=== PATIENT | female | born 1955 | race Caucasian/White ===

== ENCOUNTER 2016-06-05 17:56 | Emergency (ER) | payer OTHER ==
[~2016-06-05] VITALS: Ht 170.2 cm; Wt 74.0 kg
[~2016-06-05 17:56] MED LIST: AMITRIPTYLINE100 MG PO; ASCORBIC ACID500 M3 PO; ASPIRIN81 M1; ASPIRIN81 M2 PO; AVINZA30 MG PO; BENADRYL25 MG PO; BUPROPION XL150 MG PO; CALTRATE 600600 MG; CHANTIX1 MG PO; COUMADIN1 MG PO; COUMADIN5 MG PO; Calcium Carbonate,Ca PO; DOCUSATE SODIU100 MG PO; ELAVIL25 MG PO; Ecotrin PO; Elavil PO; FOLIC ACID1 MG PO; GABAPENTIN600 MG PO; HYDROCODON-ACE1 EAC5 PO; HYDROCODON-ACE1 EAC9 PO; HYDROXYCHLOROQ200 MG; LANSOPRAZOLE30 MG; LANSOPRAZOLE30 MG PO; LEVOTHYROXINE75 MCG; LEVOTHYROXINE75 MCG PO; Levothroid,Synthroid PO; MORPHINE SULFAT15 M1 PO; MORPHINE SULFAT30 M5 PO; MS CONTIN,ORAMO15 M1 PO; Magnesium PO; NEURONTIN600 MG PO; Neurontin PO; OMNICEF300 MG PO; OXYCODONE HCL5 MG PO; PLAVIX75 MG; POLYETHYLENE GL17 GM PO; PREDNISONE5 MG PO; PROTONIX40 MG PO; Percocet 5/325,Endoc PO; Plaquenil PO; Protonix PO; SENNA-TIME S T1 EACH PO; ST. JOSEPH ASPI81 MG PO; SYNTHROID75 MCG PO; Senokot S,Pericolace PO; Slow Fe PO; THERAGRAN1 TABLET PO; TIZANIDINE HCL4 MG PO; TRAZODONE HCL50 MG PO; TYLENOL REGULA325 MG PO; VESICARE5 MG PO; VITAMIN D250000 UNIT; WARFARIN SODIUM5 MG PO; WELLBUTRIN XL150 MG PO; WELLBUTRIN XL300 MG PO; ZANAFLEX4 M1 PO; ZOFRAN ODT4 MG PO
[2016-06-05 17:58] VITALS: BP 140/100
[2016-06-05 19:01] LABS: HEMATOCRIT 42.7 % (36.0-46.0); MCH 30.4 PG (29.0-34.0); MCHC 33.3 G/DL (30.0-36.0); MCV 91.4 FL (83-99); MEAN PLAT.VOLUME 10.5 uM^3 (9.5-12.4); PLATELET COUNT 127 K/uL (156-360); RBC DIS.WIDTH-SD 45.9 % (39-53); RED BLOOD COUNT 4.67 M/uL (3.80-5.20); WHITE BLOOD COUNT 5.2 K/uL (4.1-10.2)
[2016-06-05 19:11] LABS: CHLORIDE 109 mEq/L (99-109); SODIUM 141 mEq/L (136-147)
[2016-06-05 19:13] LABS: GLUCOSE 98 mg/dL (70-99)
[2016-06-05 19:14] LABS: ANION GAP 9 MEQ/L (2-14)
[2016-06-05 19:16] LABS: GFR ESTIMATE (CALCULATED) > 59 mL/min/
[2016-06-05 19:17] LABS: UREA NITROGEN (BUN) 9 mg/dL (9-23)
== END 2016-06-05 18:58 | disposition left against medical advice (07) ==
LOC: EME 17:56
DX: R51 Headache (principal); R61 Generalized hyperhidrosis; R68.83 Chills (without fever); Z53.21 Procedure and treatment not carried out due to patient leaving prior to being seen by health care provider
CPT/HCPCS: 80048; 81003; 85027; 87502

== ENCOUNTER 2016-10-03 15:16 | Emergency (ER) | payer OTHER ==
[~2016-10-03] VITALS: Ht 167.6 cm; Wt 74.5 kg
[2016-10-03 15:52] LABS: HEMATOCRIT 33.4 % (36.0-46.0); MCHC 33.2 G/DL (30.0-36.0); MCV 93.3 FL (83-99); MEAN PLAT.VOLUME 10.3 uM^3 (9.5-12.4); PLATELET COUNT 118 K/uL (156-360); RBC DIS.WIDTH-CV 13.2 % (11.8-14.6); RBC DIS.WIDTH-SD 45.3 % (39-53); RED BLOOD COUNT 3.58 M/uL (3.80-5.20); WHITE BLOOD COUNT 5.5 K/uL (4.1-10.2)
[2016-10-03 16:01] LABS: PROTHROMBIN TIME 10.2 (9.2-11.2); PTT 25.2 (25-32)
[2016-10-03 16:05] LABS: CHLORIDE 107 mEq/L (99-109); POTASSIUM 3.9 mEq/L (3.7-5.4); SODIUM 137 mEq/L (136-147)
[2016-10-03 16:07] LABS: GLUCOSE 111 mg/dL (70-99)
[2016-10-03 16:09] LABS: ANION GAP 6 MEQ/L (2-14)
[2016-10-03 16:11] LABS: GFR ESTIMATE (CALCULATED) > 59 mL/min/
[2016-10-03 16:12] LABS: UREA NITROGEN (BUN) 9 mg/dL (9-23)
[2016-10-03 16:16] LABS: TROP-I INTERPRETATION NEGATIVE; TROPONIN-I < 0.01 ng/mL (0.0-0.30)
[2016-10-03 19:04] VITALS: BP 122/88
[2016-10-03 19:17] LABS: ADD MIUA? YES; BILIRUBIN NEGATIVE; BLOOD NEGATIVE; COLOR YELLOW ((YELLOW)); GLUCOSE (STRIP) NEGATIVE; KETONES NEGATIVE; LEUKOCYTES MODERATE; NITRITE NEGATIVE; PROTEIN (STRIP) NEGATIVE; SPECIFIC GRAVITY 1.008 (1.000-1.030); UROBILINOGEN 0.2 MG/DL (0.2-1.0)
[2016-10-03 19:27] LABS: BACTERIA RARE /HPF; EPITHELIAL CELLS 1+ /HPF; MUCUS TRACE /LPF; RED BLOOD CELLS 0-5 /HPF (0-5)
== END 2016-10-03 19:23 | disposition home or self-care (01) ==
LOC: EME 15:16 → EXP 15:33
PROVIDERS: Nurse Practitioner Family
DX: S42.021A Displaced fracture of shaft of right clavicle, initial encounter for closed fracture (principal); R55 Syncope and collapse; W18.30XA Fall on same level, unspecified, initial encounter; Z86.73 Personal history of transient ischemic attack (TIA), and cerebral infarction without residual deficits; K21.9 Gastro-esophageal reflux disease without esophagitis; F17.200 Nicotine dependence, unspecified, uncomplicated
CPT/HCPCS: 70450; 71250; 73000; 80048; 81003; 84484; 85027; 85610; 85730; 87086; 93005; 99281; 99285; J3010

== ENCOUNTER 2017-01-23 17:17 | Emergency (ER) | payer OTHER ==
[~2017-01-23] VITALS: Ht 157.5 cm; Wt 69.7 kg
[2017-01-23 19:41] LABS: EOSINOPHIL (%) 1.4 % (0-5); EOSINOPHIL COUNT 0.1 K/uL (0-0.3); HEMATOCRIT 38.4 % (36.0-46.0); IMMATURE GRANULOCYTE (%) 0.2 % (0.0-0.7); MCH 30.4 PG (29.0-34.0); MCHC 33.6 G/DL (30.0-36.0); MCV 90.6 FL (83-99); MEAN PLAT.VOLUME 10.1 uM^3 (9.5-12.4); MONOCYTE (%) 6.9 % (3-12); MONOCYTE COUNT 0.5 K/uL (0-0.8); PLATELET COUNT 125 K/uL (156-360); RBC DIS.WIDTH-CV 13.9 % (11.8-14.6); RED BLOOD COUNT 4.24 M/uL (3.80-5.20); WHITE BLOOD COUNT 6.5 K/uL (4.1-10.2)
[2017-01-23 19:57] LABS: CHLORIDE 111 mEq/L (99-109); POTASSIUM 3.5 mEq/L (3.7-5.4); SODIUM 141 mEq/L (136-147)
[2017-01-23 19:58] LABS: GLUCOSE 90 mg/dL (70-99)
[2017-01-23 20:00] LABS: ANION GAP 8 MEQ/L (2-14)
[2017-01-23 20:02] LABS: GFR ESTIMATE (CALCULATED) > 59 mL/min/
[2017-01-23 20:03] LABS: UREA NITROGEN (BUN) 6 mg/dL (9-23)
[2017-01-23 20:05] LABS: CREATINE KINASE 37 IU/L (1-294)
[2017-01-23 20:52] LABS: PROLACTIN 7.5 NG/ML
[2017-01-23 22:15] VITALS: BP 151/80
== END 2017-01-23 22:16 | disposition home or self-care (01) ==
LOC: EME 17:17
PROVIDERS: Emergency Medicine
DX: G40.909 Epilepsy, unspecified, not intractable, without status epilepticus (principal); K21.9 Gastro-esophageal reflux disease without esophagitis; M06.9 Rheumatoid arthritis, unspecified; E03.9 Hypothyroidism, unspecified; F41.9 Anxiety disorder, unspecified; F32.9 Major depressive disorder, single episode, unspecified; Z86.73 Personal history of transient ischemic attack (TIA), and cerebral infarction without residual deficits; Z88.0 Allergy status to penicillin; F17.200 Nicotine dependence, unspecified, uncomplicated; Z79.82 Long term (current) use of aspirin
CPT/HCPCS: 70450; 80048; 82550; 84146; 85025; 99281; 99284

== ENCOUNTER → 2017-03-26 | Outpatient (CLI) | payer OTHER ==
[~2017-03-26] MED LIST changes: +INDERAL80 MG PO; +LEVOTHYROXINE50 MCG PO; +LINZESS145 MCG PO; +LORTAB 10-3251 EACH PO; +MORPHABOND ER15 MG PO; +MYSOLINE50 MG PO; +PRIMIDONE50 MG PO; +RANITIDINE HCL150 MG PO; +SERTRALINE HCL100 MG PO; +TRAZODONE HCL150 MG PO; +ZESTRIL20 MG PO; +ZOFRAN8 MG PO; +ZOLOFT100 MG PO
== END | disposition home or self-care (01) ==
LOC: OPR 09:00 → EDSTATUS 09:00 → OPR 09:03
DX: K73.8 Other chronic hepatitis, not elsewhere classified (principal); K76.0 Fatty (change of) liver, not elsewhere classified; K21.9 Gastro-esophageal reflux disease without esophagitis; M06.9 Rheumatoid arthritis, unspecified; Z79.82 Long term (current) use of aspirin; F17.210 Nicotine dependence, cigarettes, uncomplicated
CPT/HCPCS: 77012; 88307; 88313; J3010

== ENCOUNTER 2017-04-18 18:14 | Emergency (ER) | payer OTHER ==
[~2017-04-18] VITALS: Ht 162.6 cm; Wt 74.8 kg
[2017-04-18 18:56] LABS: EOSINOPHIL (%) 1.6 % (0-5); EOSINOPHIL COUNT 0.1 K/uL (0-0.3); HEMATOCRIT 37.7 % (36.0-46.0); IMMATURE GRANULOCYTE (%) 0.4 % (0.0-0.7); INSTRUMENT ABS NEUTROPHIL CT 3.6 K/uL; MCH 31.3 PG (29.0-34.0); MCHC 33.4 G/DL (30.0-36.0); MCV 93.8 FL (83-99); MEAN PLAT.VOLUME 10.6 uM^3 (9.5-12.4); MONOCYTE (%) 9.3 % (3-12); MONOCYTE COUNT 0.5 K/uL (0-0.8); NEUTROPHIL (%) 69.3 % (45-76); NEUTROPHIL COUNT 3.6 K/uL (1.8-6.4); PLATELET COUNT 125 K/uL (156-360); RBC DIS.WIDTH-CV 14.3 % (11.8-14.6); RBC DIS.WIDTH-SD 49.8 % (39-53); RED BLOOD COUNT 4.02 M/uL (3.80-5.20); WHITE BLOOD COUNT 5.2 K/uL (4.1-10.2)
[2017-04-18 19:04] LABS: CHLORIDE 102 mEq/L (99-109); POTASSIUM 4.7 mEq/L (3.7-5.4); SODIUM 132 mEq/L (136-147)
[2017-04-18 19:07] LABS: GLUCOSE 95 mg/dL (70-99)
[2017-04-18 19:08] LABS: ANION GAP 7 MEQ/L (2-14)
[2017-04-18 19:09] LABS: TOTAL BILIRUBIN 0.7 mg/dL (0.0-1.0)
[2017-04-18 19:10] LABS: ALKALINE PHOSPHATASE 161 IU/L (3-129); GFR ESTIMATE (CALCULATED) 49 mL/min/
[2017-04-18 19:11] LABS: UREA NITROGEN (BUN) 16 mg/dL (9-23)
[2017-04-18 19:17] LABS: TROP-I INTERPRETATION NEGATIVE; TROPONIN-I < 0.01 ng/mL (0.0-0.30)
[2017-04-18 20:38] LABS: ADD MIUA? YES; BILIRUBIN NEGATIVE; BLOOD NEGATIVE; COLOR YELLOW ((YELLOW)); GLUCOSE (STRIP) NEGATIVE; KETONES NEGATIVE; LEUKOCYTES NEGATIVE; NITRITE NEGATIVE; PROTEIN (STRIP) NEGATIVE; SPECIFIC GRAVITY 1.013 (1.000-1.030)
[2017-04-18 20:41] LABS: BACTERIA RARE /HPF; EPITHELIAL CELLS RARE /HPF; HYALINE CASTS 15-20 /LPF; MUCUS TRACE /LPF; RED BLOOD CELLS 0-5 /HPF (0-5); UNCLASSIFIED CRYSTALS 3+ /HPF; WHITE BLOOD CELLS 0-5 /HPF (0-5)
[2017-04-18 21:30] VITALS: BP 100/59
== END 2017-04-18 21:41 | disposition home or self-care (01) ==
LOC: EME 18:14
PROVIDERS: Physician Assistant Medical
DX: M25.561 Pain in right knee (principal); W18.30XA Fall on same level, unspecified, initial encounter; M06.9 Rheumatoid arthritis, unspecified; E03.9 Hypothyroidism, unspecified; Z91.81 History of falling; K21.9 Gastro-esophageal reflux disease without esophagitis; F32.9 Major depressive disorder, single episode, unspecified; F41.9 Anxiety disorder, unspecified; F17.200 Nicotine dependence, unspecified, uncomplicated; Z86.73 Personal history of transient ischemic attack (TIA), and cerebral infarction without residual deficits; Z96.653 Presence of artificial knee joint, bilateral; Z79.82 Long term (current) use of aspirin; Z88.0 Allergy status to penicillin; Z88.5 Allergy status to narcotic agent
CPT/HCPCS: 70450; 71010; 73564; 80053; 81003; 83735; 84484; 85025; 99281; 99285; J7030

== ENCOUNTER 2017-07-14 18:07 | Inpatient (IN) | payer OTHER ==
[~2017-07-14] VITALS: Ht 172.7 cm; Wt 68.7 kg
[2017-07-14 18:47] LABS: BASOPHIL (%) 0.2 % (0-1); EOSINOPHIL (%) 0 % (0-5); HEMATOCRIT 49.2 % (36.0-46.0); HEMOGLOBIN 16.8 G/DL (11.9-15.5); IMMATURE GRANULOCYTE (%) 0.4 % (0.0-0.7); LYMPHOCYTE (%) 8.3 % (15-42); MCH 31.4 PG (29.0-34.0); MCHC 34.1 G/DL (30.0-36.0); MONOCYTE (%) 4.5 % (3-12); MONOCYTE COUNT 0.6 K/uL (0-0.8); NEUTROPHIL (%) 86.6 % (45-76); NEUTROPHIL COUNT 10.7 K/uL (1.8-6.4); RBC DIS.WIDTH-CV 13.9 % (11.8-14.6); RBC DIS.WIDTH-SD 47.2 % (39-53); RED BLOOD COUNT 5.35 M/uL (3.80-5.20); WHITE BLOOD COUNT 12.3 K/uL (4.1-10.2)
[2017-07-14 18:59] LABS: APPEARANCE CLOUDY ((CLEAR)); BILIRUBIN NEGATIVE; BLOOD NEGATIVE; COLOR AMBER ((YELLOW)); GLUCOSE (STRIP) NEGATIVE; KETONES 5; LEUKOCYTES NEGATIVE; NITRITE NEGATIVE; PROTEIN (STRIP) 30; SPECIFIC GRAVITY 1.025 (1.000-1.030)
[2017-07-14 19:04] LABS: ALBUMIN 4.1 g/dL (3.2-4.8); CHLORIDE 104 mEq/L (99-109); POTASSIUM 4.4 mEq/L (3.7-5.4); SODIUM 140 mEq/L (136-147)
[2017-07-14 19:06] LABS: GLUCOSE 119 mg/dL (70-99)
[2017-07-14 19:07] LABS: TOTAL PROTEIN 8.1 g/dL (6.4-8.3)
[2017-07-14 19:08] LABS: TOTAL BILIRUBIN 1.7 mg/dL (0.0-1.0)
[2017-07-14 19:10] LABS: ALKALINE PHOSPHATASE 128 IU/L (3-129); CREATININE 0.7 mg/dL (0.6-1.3); GFR ESTIMATE (CALCULATED) > 59 mL/min/
[2017-07-14 19:11] LABS: UREA NITROGEN (BUN) 19 mg/dL (9-23)
[2017-07-14 19:12] LABS: AST (GOT) 53 IU/L (2-34)
[2017-07-14 19:13] LABS: ALT (GPT) 51 IU/L (3-49)
[2017-07-14 19:14] LABS: CREATINE KINASE 369 IU/L (1-294); LIPASE 24 U/L (1.0-51.0)
[2017-07-14 19:23] LABS: RED BLOOD CELLS NONE SEEN /HPF (0-5)
[2017-07-14 19:24] LABS: BACTERIA 1+ /HPF; EPITHELIAL CELLS 1+ /HPF; MUCUS 4+ /LPF; UCUL ADDED? NO; WHITE BLOOD CELLS NONE SEEN /HPF (0-5)
[2017-07-14 19:27] LABS: BENZODIAZEPINES, URINE SCREEN Negative (200 ng/mL)
[2017-07-14 19:28] LABS: PLAT.SUFFICIENCY DECREASED; PLATELET COUNT 97 K/uL (156-360)
[2017-07-14 20:26] LABS: INTER. NORMALIZED RATIO 1.1
[2017-07-14 20:29] LABS: PTT 25.4 SEC (25-37)
[2017-07-14 20:53] LABS: SERUM ETHYL ALCOHOL < 10 mg/dL
[2017-07-15] MEDS ORDERED: PRIMIDONE50 MG PO (00:18)
[2017-07-15] MEDS ORDERED: CHANTIX1 EACH PO (00:18)
[2017-07-15] MEDS ORDERED: AMITRIPTYLINE H25 MG PO (00:20)
[2017-07-15] MEDS ORDERED: LISINOPRIL20 MG PO (00:21)
[2017-07-15] MEDS ORDERED: PROPRANOLOL HCL80 MG PO (00:21)
[2017-07-15] MEDS ORDERED: ESCITALOPRAM OX10 MG PO (00:22)
[2017-07-15] MEDS ORDERED: ONDANSETRON HCL4 MG PO (00:22)
[2017-07-15] MEDS ORDERED: CLONAZEPAM0.5 MG PO (00:23)
[2017-07-15] MEDS ORDERED: TIZANIDINE HCL4 MG PO (00:24)
[2017-07-15] MEDS ORDERED: MORPHINE SULFAT15 M1 PO (00:24)
[2017-07-15] MEDS ORDERED: TRAZODONE HCL50 MG PO (00:26)
[2017-07-15] MEDS ORDERED: BUPROPION XL300 MG PO (00:26)
[2017-07-15 00:30] LABS: HDL CHOLESTEROL 40 MG/DL (Desirable>=50); LDL CHOLESTEROL 109 mg/dL (Desirable<100); NON-HDL CHOLESTEROL 153 mg/dL (Desirable<160); TOTAL CHOLESTEROL 193 mg/dL (Desirable<200); TRIGLYCERIDES 220 MG/DL (Normal: <150)
[2017-07-15 01:41] VITALS: BP 134/82
[2017-07-15 03:52] VITALS: BP 141/63
[2017-07-15 07:45] VITALS: BP 151/87
[2017-07-15 09:12] LABS: HEMATOCRIT 34.4 % (36.0-46.0); MCH 30.4 PG (29.0-34.0); MCHC 32.3 G/DL (30.0-36.0); MCV 94.2 FL (83-99); PLATELET COUNT 102 K/uL (156-360); RBC DIS.WIDTH-CV 14.2 % (11.8-14.6); RBC DIS.WIDTH-SD 49.1 % (39-53); WHITE BLOOD COUNT 8.6 K/uL (4.1-10.2)
[2017-07-15 09:20] LABS: HEMOGLOBIN 11.1 G/DL (11.9-15.5); RED BLOOD COUNT 3.65 M/uL (3.80-5.20)
[2017-07-15 09:35] LABS: ALKALINE PHOSPHATASE 68 IU/L (3-129); ALT (GPT) 26 IU/L (3-49); AST (GOT) 26 IU/L (2-34); CHLORIDE 110 MEQ/L (99-109); CREATININE 0.5 MG/DL (0.6-1.3); GFR ESTIMATE (CALCULATED) > 59 mL/min/; GLUCOSE 107 mg/dL (70-99); SODIUM 145 MEQ/L (136-147); TOTAL BILIRUBIN 0.9 MG/DL (0.0-1.0); TOTAL PROTEIN 5.7 G/DL (6.4-8.3); UREA NITROGEN (BUN) 18 mg/dL (9-23)
[2017-07-15 09:36] LABS: POTASSIUM 3.3 MEQ/L (3.7-5.4)
[2017-07-15 10:03] LABS: HEMOGLOBIN A1c (GLYCOHEMOGLOB) 4.5 % (Below 5.7)
[2017-07-15 10:55] LABS: HEPATITIS B SURFACE ANTIGEN Nonreactive
[2017-07-15 11:19] LABS: ANTI-HEPATITIS A VIRUS (IGM) Nonreactive; ANTI-HEPATITIS B CORE (IGM) Nonreactive
[2017-07-15 11:29] LABS: HEPATITIS C ANTIBODY REACTIVE
[2017-07-15 11:45] VITALS: BP 157/74
[2017-07-15 17:22] VITALS: BP 149/71
[2017-07-15 20:24] VITALS: BP 116/69
[2017-07-16 00:25] VITALS: BP 100/55
[2017-07-16 06:29] LABS: BASOPHIL (%) 0.2 % (0-1); EOSINOPHIL (%) 0.2 % (0-5); HEMATOCRIT 32.4 % (36.0-46.0); HEMOGLOBIN 10.5 G/DL (11.9-15.5); IMMATURE GRANULOCYTE (%) 0.3 % (0.0-0.7); LYMPHOCYTE (%) 17.9 % (15-42); LYMPHOCYTE COUNT 1.1 K/uL (1.0-2.8); MCH 31.3 PG (29.0-34.0); MCHC 32.4 G/DL (30.0-36.0); MCV 96.7 FL (83-99); MONOCYTE (%) 8.3 % (3-12); MONOCYTE COUNT 0.5 K/uL (0-0.8); NEUTROPHIL (%) 73.1 % (45-76); NEUTROPHIL COUNT 4.5 K/uL (1.8-6.4); PLATELET COUNT 82 K/uL (156-360); RBC DIS.WIDTH-CV 14.4 % (11.8-14.6); RBC DIS.WIDTH-SD 50.7 % (39-53); RED BLOOD COUNT 3.35 M/uL (3.80-5.20); WHITE BLOOD COUNT 6.2 K/uL (4.1-10.2)
[2017-07-16 06:53] LABS: CHLORIDE 113 MEQ/L (99-109); CREATININE 0.4 MG/DL (0.6-1.3); GFR ESTIMATE (CALCULATED) > 59 mL/min/; GLUCOSE 82 mg/dL (70-99); POTASSIUM 3.6 MEQ/L (3.7-5.4); SODIUM 142 MEQ/L (136-147); UREA NITROGEN (BUN) 9 mg/dL (9-23)
[2017-07-16 08:04] VITALS: BP 139/73
[2017-07-16 12:50] VITALS: BP 137/79
[2017-07-16 19:30] VITALS: BP 141/64
[2017-07-17 00:46] VITALS: BP 129/74
[2017-07-17 05:46] LABS: BASOPHIL (%) 0.2 % (0-1); EOSINOPHIL (%) 1.5 % (0-5); EOSINOPHIL COUNT 0.1 K/uL (0-0.3); HEMATOCRIT 35.9 % (36.0-46.0); HEMOGLOBIN 11.3 G/DL (11.9-15.5); IMMATURE GRANULOCYTE (%) 0.5 % (0.0-0.7); LYMPHOCYTE (%) 12.7 % (15-42); MCH 30.7 PG (29.0-34.0); MCHC 31.5 G/DL (30.0-36.0); MCV 97.6 FL (83-99); MONOCYTE (%) 6.9 % (3-12); MONOCYTE COUNT 0.6 K/uL (0-0.8); NEUTROPHIL (%) 78.2 % (45-76); NEUTROPHIL COUNT 6.4 K/uL (1.8-6.4); PLATELET COUNT 119 K/uL (156-360); RBC DIS.WIDTH-SD 50.6 % (39-53); RED BLOOD COUNT 3.68 M/uL (3.80-5.20); WHITE BLOOD COUNT 8.2 K/uL (4.1-10.2)
[2017-07-17 06:05] LABS: C DIFF TOXIN NEGATIVE (NEGATIVE)
[2017-07-17 06:06] LABS: CHLORIDE 114 MEQ/L (99-109); CREATININE 0.5 MG/DL (0.6-1.3); GFR ESTIMATE (CALCULATED) > 59 mL/min/; GLUCOSE 75 mg/dL (70-99); POTASSIUM 3.7 MEQ/L (3.7-5.4); SODIUM 144 MEQ/L (136-147); UREA NITROGEN (BUN) 9 mg/dL (9-23)
[2017-07-17 07:30] VITALS: BP 174/77
[2017-07-17 11:48] VITALS: BP 145/107
[2017-07-17 15:52] VITALS: BP 141/96
[2017-07-17 19:45] VITALS: BP 139/81
[2017-07-17 23:54] VITALS: BP 131/65
[2017-07-18 03:48] VITALS: BP 186/84
[2017-07-18 05:59] LABS: BASOPHIL (%) 0.2 % (0-1); EOSINOPHIL (%) 2.9 % (0-5); EOSINOPHIL COUNT 0.1 K/uL (0-0.3); HEMATOCRIT 32.4 % (36.0-46.0); HEMOGLOBIN 10.5 G/DL (11.9-15.5); IMMATURE GRANULOCYTE (%) 0.6 % (0.0-0.7); LYMPHOCYTE (%) 18.9 % (15-42); LYMPHOCYTE COUNT 0.9 K/uL (1.0-2.8); MCH 31.2 PG (29.0-34.0); MCHC 32.4 G/DL (30.0-36.0); MCV 96.1 FL (83-99); MONOCYTE (%) 7.9 % (3-12); MONOCYTE COUNT 0.4 K/uL (0-0.8); NEUTROPHIL (%) 69.5 % (45-76); NEUTROPHIL COUNT 3.4 K/uL (1.8-6.4); PLATELET COUNT 110 K/uL (156-360); RBC DIS.WIDTH-CV 13.9 % (11.8-14.6); RBC DIS.WIDTH-SD 49.4 % (39-53); RED BLOOD COUNT 3.37 M/uL (3.80-5.20); WHITE BLOOD COUNT 4.8 K/uL (4.1-10.2)
[2017-07-18 06:27] LABS: CHLORIDE 115 MEQ/L (99-109); CREATININE 0.4 MG/DL (0.6-1.3); GFR ESTIMATE (CALCULATED) > 59 mL/min/; GLUCOSE 78 mg/dL (70-99); POTASSIUM 3.8 MEQ/L (3.7-5.4); SODIUM 144 MEQ/L (136-147); UREA NITROGEN (BUN) 9 mg/dL (9-23)
[2017-07-18 12:11] VITALS: BP 147/81
[2017-07-18 16:37] VITALS: BP 167/77
[2017-07-18 20:00] VITALS: BP 165/78
[2017-07-19 05:23] VITALS: BP 170/82
[2017-07-19 06:03] LABS: BASOPHIL (%) 0.2 % (0-1); EOSINOPHIL (%) 1.2 % (0-5); EOSINOPHIL COUNT 0.1 K/uL (0-0.3); HEMATOCRIT 32.1 % (36.0-46.0); HEMOGLOBIN 10.4 G/DL (11.9-15.5); IMMATURE GRANULOCYTE (%) 0.2 % (0.0-0.7); LYMPHOCYTE (%) 20.5 % (15-42); LYMPHOCYTE COUNT 0.9 K/uL (1.0-2.8); MCHC 32.4 G/DL (30.0-36.0); MCV 95.8 FL (83-99); MONOCYTE (%) 6.8 % (3-12); MONOCYTE COUNT 0.3 K/uL (0-0.8); NEUTROPHIL (%) 71.1 % (45-76); PLATELET COUNT 106 K/uL (156-360); RBC DIS.WIDTH-CV 13.8 % (11.8-14.6); RBC DIS.WIDTH-SD 49.3 % (39-53); RED BLOOD COUNT 3.35 M/uL (3.80-5.20); WHITE BLOOD COUNT 4.2 K/uL (4.1-10.2)
[2017-07-19 06:24] LABS: CHLORIDE 113 MEQ/L (99-109); POTASSIUM 3.8 MEQ/L (3.7-5.4); SODIUM 143 MEQ/L (136-147)
[2017-07-19 06:29] LABS: CREATININE 0.5 MG/DL (0.6-1.3); GFR ESTIMATE (CALCULATED) > 59 mL/min/; GLUCOSE 85 mg/dL (70-99); UREA NITROGEN (BUN) 7 mg/dL (9-23)
[2017-07-19 10:00] VITALS: BP 133/64
[2017-07-19] MEDS ORDERED: BACTRIM,SEPT1 TABLET PO (10:48)
[2017-07-19] MEDS ORDERED: HYDROCODON-ACE1 EAC9 PO (10:49)
[2017-07-19 11:24] VITALS: BP 121/74
== END 2017-07-19 14:16 | DRG 948 ==
LOC: EME 18:07 → 5WEST 22:57 → EDOF 22:57 → ENRESERV 23:01 → 5WEST 07-15 01:16 → ENPENDDIS 07-19 12:38 → 5WEST 07-19 14:16
PROVIDERS: Emergency Medicine; Hospitalist; Internal Medicine; Nurse Practitioner Family
DX: R41.0 Disorientation, unspecified (principal); N30.90 Cystitis, unspecified without hematuria; R78.81 Bacteremia; E03.9 Hypothyroidism, unspecified; I25.10 Atherosclerotic heart disease of native coronary artery without angina pectoris; M06.9 Rheumatoid arthritis, unspecified; K21.9 Gastro-esophageal reflux disease without esophagitis; M19.021 Primary osteoarthritis, right elbow; I73.9 Peripheral vascular disease, unspecified; I10 Essential (primary) hypertension; B18.2 Chronic viral hepatitis C; F41.9 Anxiety disorder, unspecified; R29.6 Repeated falls; G93.89 Other specified disorders of brain; J98.11 Atelectasis; J90 Pleural effusion, not elsewhere classified; R09.02 Hypoxemia; F17.200 Nicotine dependence, unspecified, uncomplicated; I27.20 Pulmonary hypertension, unspecified; W19.XXXA Unspecified fall, initial encounter; J44.9 Chronic obstructive pulmonary disease, unspecified; Z96.653 Presence of artificial knee joint, bilateral; Z79.82 Long term (current) use of aspirin; Z86.73 Personal history of transient ischemic attack (TIA), and cerebral infarction without residual deficits; Y92.009 Unspecified place in unspecified non-institutional (private) residence as the place of occurrence of the external cause; Z90.710 Acquired absence of both cervix and uterus; Z88.5 Allergy status to narcotic agent; Z88.0 Allergy status to penicillin; Z82.3 Family history of stroke; Z79.899 Other long term (current) drug therapy; Z83.3 Family history of diabetes mellitus
CPT/HCPCS: 70450; 70551; 71045; 72170; 73080; 73200; 80048; 80053; 80061; 80074; 80306 90; 81003; 82140; 82550; 83036; 83605; 83690; 85025; 85027; 85610; 85730; 87040; 87493; 87801; 92610 GN; 93005; 93306; 93880; 94640; 94799; 99202; 99281; 99285; G0378; G0480; G8996 GN CH; G8997 GN CH; G8998 GN CH; J0696; J1630; J1644; J2060; J3370; J7030; J7040

== ENCOUNTER 2017-07-25 13:33 | Inpatient (IN) | payer OTHER ==
[~2017-07-25] VITALS: Ht 167.6 cm; Wt 73.6 kg
[~2017-07-25 13:33] MED LIST changes: +AMITRIPTYLINE H25 MG PO; +BACTRIM,SEPT1 TABLET PO; +BUPROPION XL300 MG PO; +CHANTIX1 EACH PO; +CLONAZEPAM0.5 MG PO; +ESCITALOPRAM OX10 MG PO; +LISINOPRIL20 MG PO; +ONDANSETRON HCL4 MG PO; +PROPRANOLOL HCL80 MG PO
[2017-07-25 15:45] LABS: HEMATOCRIT 32.6 % (36.0-46.0); HEMOGLOBIN 10.9 G/DL (11.9-15.5); MCH 32.2 PG (29.0-34.0); MCHC 33.4 G/DL (30.0-36.0); MCV 96.2 FL (83-99); RBC DIS.WIDTH-CV 15.1 % (11.8-14.6); RBC DIS.WIDTH-SD 51.7 % (39-53); RED BLOOD COUNT 3.39 M/uL (3.80-5.20); WHITE BLOOD COUNT 15.6 K/uL (4.1-10.2)
[2017-07-25 15:58] LABS: INTER. NORMALIZED RATIO 1.1
[2017-07-25 15:59] LABS: PLATELET COUNT 190 K/uL (156-360)
[2017-07-25 16:04] LABS: CHLORIDE 109 mEq/L (99-109); POTASSIUM 3.8 mEq/L (3.7-5.4); SODIUM 143 mEq/L (136-147)
[2017-07-25 16:05] LABS: GLUCOSE 93 mg/dL (70-99)
[2017-07-25 16:09] LABS: CREATININE 0.7 mg/dL (0.6-1.3); GFR ESTIMATE (CALCULATED) > 59 mL/min/
[2017-07-25 16:10] LABS: UREA NITROGEN (BUN) 8 mg/dL (9-23)
[2017-07-25] MEDS ORDERED: BACTRIM,SEPT1 TABLET PO (16:12)
[2017-07-25] MEDS ORDERED: AMITRIPTYLINE H25 MG PO (16:16)
[2017-07-25] MEDS ORDERED: MORPHINE SULFAT15 M1 PO (16:16)
[2017-07-25] MEDS ORDERED: ZANTAC150 MG PO (16:16)
[2017-07-25] MEDS ORDERED: SYNTHROID50 MCG PO (16:16)
[2017-07-25 18:18] LABS: APPEARANCE CLEAR ((CLEAR)); BILIRUBIN NEGATIVE; BLOOD NEGATIVE; COLOR STRAW ((YELLOW)); GLUCOSE (STRIP) NEGATIVE; KETONES NEGATIVE; LEUKOCYTES NEGATIVE; NITRITE NEGATIVE; PROTEIN (STRIP) NEGATIVE; SPECIFIC GRAVITY 1.006 (1.000-1.030); UROBILINOGEN 0.2 MG/DL (0.2-1.0)
[2017-07-25 20:38] VITALS: BP 172/88
[2017-07-25 21:45] LABS: HEMATOCRIT 31.1 % (36.0-46.0); HEMOGLOBIN 10.3 G/DL (11.9-15.5)
[2017-07-25 23:58] VITALS: BP 132/65
[2017-07-26 04:44] VITALS: BP 138/70
[2017-07-26 06:32] LABS: HEMATOCRIT 31.6 % (36.0-46.0); MCH 30.9 PG (29.0-34.0); MCHC 31.6 G/DL (30.0-36.0); MCV 97.5 FL (83-99); PLATELET COUNT 170 K/uL (156-360); RBC DIS.WIDTH-CV 15.1 % (11.8-14.6); RBC DIS.WIDTH-SD 53.5 % (39-53); RED BLOOD COUNT 3.24 M/uL (3.80-5.20); WHITE BLOOD COUNT 8.8 K/uL (4.1-10.2)
[2017-07-26 07:03] LABS: CHLORIDE 103 MEQ/L (99-109); CREATININE 0.6 MG/DL (0.6-1.3); GFR ESTIMATE (CALCULATED) > 59 mL/min/; GLUCOSE 71 mg/dL (70-99); SODIUM 138 MEQ/L (136-147); UREA NITROGEN (BUN) 8 mg/dL (9-23)
[2017-07-26 07:05] LABS: ALBUMIN 2.8 G/DL (3.2-4.8); ALKALINE PHOSPHATASE 164 IU/L (3-129); ALT (GPT) 160 IU/L (3-49); AST (GOT) 410 IU/L (2-34); CHLORIDE 104 MEQ/L (99-109); CREATININE 0.6 MG/DL (0.6-1.3); GFR ESTIMATE (CALCULATED) > 59 mL/min/; GLUCOSE 70 mg/dL (70-99); POTASSIUM 3.8 MEQ/L (3.7-5.4); SODIUM 139 MEQ/L (136-147); TOTAL BILIRUBIN 1.1 MG/DL (0.0-1.0); TOTAL PROTEIN 5.6 G/DL (6.4-8.3); UREA NITROGEN (BUN) 7 mg/dL (9-23)
[2017-07-26 08:09] VITALS: BP 144/76
[2017-07-26 13:15] VITALS: BP 114/62
[2017-07-26 15:25] VITALS: BP 111/63
[2017-07-26 19:59] VITALS: BP 102/53
[2017-07-26 23:26] VITALS: BP 137/68
[2017-07-27 03:49] VITALS: BP 135/64
[2017-07-27 05:31] LABS: BASOPHIL (%) 0.2 % (0-1); EOSINOPHIL (%) 0.8 % (0-5); EOSINOPHIL COUNT 0.1 K/uL (0-0.3); HEMATOCRIT 25.9 % (36.0-46.0); HEMOGLOBIN 8.5 G/DL (11.9-15.5); IMMATURE GRANULOCYTE (%) 0.4 % (0.0-0.7); LYMPHOCYTE (%) 9.3 % (15-42); LYMPHOCYTE COUNT 0.8 K/uL (1.0-2.8); MCHC 32.8 G/DL (30.0-36.0); MCV 97.4 FL (83-99); MONOCYTE (%) 6.5 % (3-12); MONOCYTE COUNT 0.6 K/uL (0-0.8); NEUTROPHIL (%) 82.8 % (45-76); NEUTROPHIL COUNT 7.1 K/uL (1.8-6.4); PLATELET COUNT 135 K/uL (156-360); RBC DIS.WIDTH-CV 15.6 % (11.8-14.6); RBC DIS.WIDTH-SD 54.3 % (39-53); RED BLOOD COUNT 2.66 M/uL (3.80-5.20); WHITE BLOOD COUNT 8.6 K/uL (4.1-10.2)
[2017-07-27 05:54] LABS: CHLORIDE 102 MEQ/L (99-109); CREATININE 0.6 MG/DL (0.6-1.3); GFR ESTIMATE (CALCULATED) > 59 mL/min/; POTASSIUM 3.7 MEQ/L (3.7-5.4); SODIUM 134 MEQ/L (136-147); UREA NITROGEN (BUN) 10 mg/dL (9-23)
[2017-07-27 05:55] LABS: GLUCOSE 156 mg/dL (70-99)
[2017-07-27 08:25] VITALS: BP 106/58
[2017-07-27 11:13] VITALS: BP 118/57
[2017-07-27 12:45] LABS: HEMATOCRIT 27.6 % (36.0-46.0); HEMOGLOBIN 9.1 G/DL (11.9-15.5); MCV 97.2 FL (83-99)
[2017-07-27 15:28] VITALS: BP 108/62
[2017-07-27 20:10] VITALS: BP 118/63
[2017-07-27 23:54] VITALS: BP 127/57
[2017-07-28 04:10] VITALS: BP 127/60
[2017-07-28 06:55] LABS: BASOPHIL (%) 0.4 % (0-1); EOSINOPHIL (%) 1.5 % (0-5); EOSINOPHIL COUNT 0.1 K/uL (0-0.3); HEMATOCRIT 27.8 % (36.0-46.0); HEMOGLOBIN 8.9 G/DL (11.9-15.5); IMMATURE GRANULOCYTE (%) 0.4 % (0.0-0.7); LYMPHOCYTE (%) 17.2 % (15-42); LYMPHOCYTE COUNT 1.2 K/uL (1.0-2.8); MCH 31.7 PG (29.0-34.0); MCV 98.9 FL (83-99); MONOCYTE (%) 7.9 % (3-12); MONOCYTE COUNT 0.6 K/uL (0-0.8); NEUTROPHIL (%) 72.6 % (45-76); NEUTROPHIL COUNT 5.2 K/uL (1.8-6.4); NRBC (%) 0.3 /100 WBC (0-0); PLATELET COUNT 127 K/uL (156-360); RBC DIS.WIDTH-CV 15.9 % (11.8-14.6); RBC DIS.WIDTH-SD 57.1 % (39-53); RED BLOOD COUNT 2.81 M/uL (3.80-5.20); WHITE BLOOD COUNT 7.2 K/uL (4.1-10.2)
[2017-07-28 07:26] VITALS: BP 125/60
[2017-07-28 07:35] LABS: CHLORIDE 108 MEQ/L (99-109); CREATININE 0.4 MG/DL (0.6-1.3); GFR ESTIMATE (CALCULATED) > 59 mL/min/; UREA NITROGEN (BUN) 6 mg/dL (9-23)
[2017-07-28 07:46] LABS: GLUCOSE 97 mg/dL (70-99); SODIUM 142 MEQ/L (136-147)
[2017-07-28 09:49] LABS: TYPE OF FLUID PLEURAL
[2017-07-28 10:50] LABS: BODY FLUID GLUCOSE 166 MG/DL; BODY FLUID LDH 192 IU/L; BODY FLUID PROTEIN < 3.0 G/DL
[2017-07-28 11:11] LABS: APPEARANCE CLOUDY-BLOODY; BODY FLUID EOSINOPHILS 0 % (0-25); BODY FLUID RBC'S 275000 /MM^3 (0-100); BODY FLUID WBC'S 844 /MM^3 (0-500); MONONUCLEAR WBC'S 55 %; POLYNUCLEAR WBC'S 45 % (0-25)
[2017-07-28 11:39] VITALS: BP 114/57
[2017-07-28 16:39] VITALS: BP 130/81
[2017-07-28 19:41] VITALS: BP 137/82
[2017-07-28 23:12] VITALS: BP 124/61
[2017-07-29 04:21] VITALS: BP 118/62
[2017-07-29 06:12] LABS: BASOPHIL (%) 0.5 % (0-1); EOSINOPHIL (%) 2.7 % (0-5); EOSINOPHIL COUNT 0.2 K/uL (0-0.3); HEMATOCRIT 31.5 % (36.0-46.0); HEMOGLOBIN 9.5 G/DL (11.9-15.5); IMMATURE GRANULOCYTE (%) 0.4 % (0.0-0.7); LYMPHOCYTE (%) 24.6 % (15-42); LYMPHOCYTE COUNT 1.9 K/uL (1.0-2.8); MCH 30.8 PG (29.0-34.0); MCHC 30.2 G/DL (30.0-36.0); MCV 102.3 FL (83-99); MONOCYTE COUNT 0.7 K/uL (0-0.8); NEUTROPHIL (%) 62.8 % (45-76); NEUTROPHIL COUNT 4.8 K/uL (1.8-6.4); PLATELET COUNT 115 K/uL (156-360); RBC DIS.WIDTH-CV 15.9 % (11.8-14.6); RBC DIS.WIDTH-SD 58.4 % (39-53); RED BLOOD COUNT 3.08 M/uL (3.80-5.20); WHITE BLOOD COUNT 7.7 K/uL (4.1-10.2)
[2017-07-29 06:44] LABS: CHLORIDE 106 MEQ/L (99-109); CREATININE 0.5 MG/DL (0.6-1.3); GFR ESTIMATE (CALCULATED) > 59 mL/min/; GLUCOSE 88 mg/dL (70-99); POTASSIUM 4.3 MEQ/L (3.7-5.4); SODIUM 138 MEQ/L (136-147); UREA NITROGEN (BUN) 8 mg/dL (9-23)
[2017-07-29 07:29] VITALS: BP 107/57
[2017-07-29 12:25] VITALS: BP 104/55
[2017-07-29 15:25] VITALS: BP 102/59
[2017-07-29 20:35] VITALS: BP 113/50
[2017-07-29 23:14] VITALS: BP 122/67
[2017-07-30] VITALS (10 sets, daily range): BP systolic 83–113; BP diastolic 50–64
[2017-07-31 04:00] VITALS: BP 90/60
[2017-07-31 07:36] VITALS: BP 122/56
[2017-07-31 11:49] VITALS: BP 98/55
[2017-07-31] MEDS ORDERED: DUONEB 2.5-0.5 M3 ML AEROSOL (14:12)
[2017-07-31] MEDS ORDERED: SPIRIVA RESPIMAT4 GM IH (14:12)
[2017-07-31] MEDS ORDERED: ACETAMINOPHEN650 M5 PO (14:13)
[2017-07-31] MEDS ORDERED: DOCUSATE SODIU100 MG PO (14:16)
[2017-07-31] MEDS ORDERED: THERAGRAN1 TABLET PO (14:16)
[2017-07-31] MEDS ORDERED: POLYETHYLENE GL17 GM PO (14:17)
[2017-07-31] MEDS ORDERED: CALCIUM CARB1 TABLET PO (14:19)
[2017-07-31] MEDS ORDERED: TRAMADOL HCL50 MG PO (14:30)
[2017-07-31] MEDS ORDERED: OXYCODONE HCL5 MG PO (14:30)
[2017-07-31 15:50] VITALS: BP 102/58
== END 2017-07-31 18:28 | DRG 480 ==
LOC: EME 13:33 → 3EAST 15:56 → EDOF 15:56 → ENRESERV 15:58 → 3EAST 20:02
PROVIDERS: Emergency Medicine; Hospitalist; Internal Medicine; Internal Medicine Pulmonary Disease; Orthopaedic Surgery Sports Medicine; Physician Assistant Medical
PROC: 0QS804Z Reposition Right Femoral Shaft with Internal Fixation Device, Open Approach (ICD-10-PCS; principal; 2017-07-26)
PROC: 0W993ZZ Drainage of Right Pleural Cavity, Percutaneous Approach (ICD-10-PCS; 2017-07-28)
DX: S72.141A Displaced intertrochanteric fracture of right femur, initial encounter for closed fracture (principal); J18.9 Pneumonia, unspecified organism; J96.01 Acute respiratory failure with hypoxia; J44.0 Chronic obstructive pulmonary disease with (acute) lower respiratory infection; J90 Pleural effusion, not elsewhere classified; M06.9 Rheumatoid arthritis, unspecified; I25.10 Atherosclerotic heart disease of native coronary artery without angina pectoris; I27.20 Pulmonary hypertension, unspecified; I35.0 Nonrheumatic aortic (valve) stenosis; Z66 Do not resuscitate; G89.29 Other chronic pain; K43.9 Ventral hernia without obstruction or gangrene; D69.6 Thrombocytopenia, unspecified; J94.2 Hemothorax; W01.0XXA Fall on same level from slipping, tripping and stumbling without subsequent striking against object, initial encounter; K74.60 Unspecified cirrhosis of liver; M19.90 Unspecified osteoarthritis, unspecified site; K21.9 Gastro-esophageal reflux disease without esophagitis; I10 Essential (primary) hypertension; D64.9 Anemia, unspecified; E03.9 Hypothyroidism, unspecified; F41.9 Anxiety disorder, unspecified; F17.210 Nicotine dependence, cigarettes, uncomplicated; Z79.82 Long term (current) use of aspirin; Z96.653 Presence of artificial knee joint, bilateral; Z90.710 Acquired absence of both cervix and uterus; Z86.73 Personal history of transient ischemic attack (TIA), and cerebral infarction without residual deficits; Z79.899 Other long term (current) drug therapy
CPT/HCPCS: 70450; 71045; 73502; 73560; 74176; 76000; 76604; 76942; 80048; 80053; 81003; 82306; 82945; 83615 91; 83880; 84157; 85014; 85018; 85025; 85027; 85610; 86850; 86900; 86901; 86920; 87070; 87075; 87205; 88108; 88304; 88305; 89051; 93005; 94640; 94640 76; 94760; 94799; 99202; 99281; 99285; C1713; J0131; J0690; J0696; J1100; J1644; J1650; J1956; J2250; J2270; J2405; J7040

== ENCOUNTER 2017-10-01 08:07 | Emergency (ER) | payer OTHER ==
[~2017-10-01] VITALS: Ht 167.6 cm; Wt 65.6 kg
[~2017-10-01 08:07] MED LIST changes: +ACETAMINOPHEN650 M5 PO; +CALCIUM CARB1 TABLET PO; +DUONEB 2.5-0.5 M3 ML AEROSOL; +SPIRIVA RESPIMAT4 GM IH; +SYNTHROID50 MCG PO; +TRAMADOL HCL50 MG PO; +ZANTAC150 MG PO
[2017-10-01 08:38] LABS: BASOPHIL (%) 0.5 % (0-1); EOSINOPHIL (%) 0.5 % (0-5); HEMATOCRIT 39.4 % (36.0-46.0); IMMATURE GRANULOCYTE (%) 0.2 % (0.0-0.7); LYMPHOCYTE (%) 14.2 % (15-42); LYMPHOCYTE COUNT 0.8 K/uL (1.0-2.8); MCH 29.8 PG (29.0-34.0); MCV 90.4 FL (83-99); MONOCYTE (%) 6.6 % (3-12); MONOCYTE COUNT 0.4 K/uL (0-0.8); NEUTROPHIL COUNT 4.3 K/uL (1.8-6.4); PLATELET COUNT 118 K/uL (156-360); RBC DIS.WIDTH-CV 14.6 % (11.8-14.6); RBC DIS.WIDTH-SD 48.7 % (39-53); RED BLOOD COUNT 4.36 M/uL (3.80-5.20); WHITE BLOOD COUNT 5.5 K/uL (4.1-10.2)
[2017-10-01 08:46] LABS: CHLORIDE 104 mEq/L (99-109); POTASSIUM 4.4 mEq/L (3.7-5.4); SODIUM 137 mEq/L (136-147)
[2017-10-01 08:48] LABS: GLUCOSE 89 mg/dL (70-99)
[2017-10-01 08:52] LABS: CREATININE 0.6 mg/dL (0.6-1.3); GFR ESTIMATE (CALCULATED) > 59 mL/min/
[2017-10-01 08:53] LABS: UREA NITROGEN (BUN) 7 mg/dL (9-23)
[2017-10-01 08:58] LABS: TROP-I INTERPRETATION NEGATIVE; TROPONIN-I < 0.01 ng/mL (0.0-0.30)
[2017-10-01 09:30] VITALS: BP 107/63
== END 2017-10-01 09:32 | disposition home or self-care (01) ==
LOC: EME → EDBD 08:07 → EME 08:07
PROVIDERS: Emergency Medicine
DX: I10 Essential (primary) hypertension (principal); J44.9 Chronic obstructive pulmonary disease, unspecified; K21.9 Gastro-esophageal reflux disease without esophagitis; E03.9 Hypothyroidism, unspecified; M06.9 Rheumatoid arthritis, unspecified; G43.909 Migraine, unspecified, not intractable, without status migrainosus; F41.9 Anxiety disorder, unspecified; F32.9 Major depressive disorder, single episode, unspecified; F17.200 Nicotine dependence, unspecified, uncomplicated; Z86.73 Personal history of transient ischemic attack (TIA), and cerebral infarction without residual deficits; Z90.49 Acquired absence of other specified parts of digestive tract; Z96.653 Presence of artificial knee joint, bilateral; Z88.5 Allergy status to narcotic agent; Z88.0 Allergy status to penicillin
CPT/HCPCS: 71045; 80048; 84484; 85025; 93005; 99281; 99284